=== PATIENT | female | born 1940 | race Caucasian/White ===

== ENCOUNTER 2019-11-27 06:44 | Outpatient (CLI) | payer MEDICARE, OTHER, SELFPAY ==
[2019-11-27 07:51] LABS: Hemoglobin A1C 7.3 % (<5.7)
[2019-11-27 08:03] LABS: Alanine Aminotransferase 12 U/L (4-35); Blood Urea Nitrogen 30 mg/dL (7-17); Calcium 9.2 mg/dL (8.4-10.2); Carbon Dioxide 29 mmol/L (22-30); Chloride 98 mmol/L (98-107); Cholesterol 181 mg/dL (0-200); Estimated Glomerular Filt Rate 48; Glucose 174 mg/dL (65-105); HDL Direct 41 mg/dL; Potassium 4.2 mmol/L (3.4-5.0); Sodium 140 mmol/L (137-145); Triglycerides 191 mg/dL (<150)
[2019-11-27 08:13] LABS: LDL Cholesterol Direct 122 mg/dL
== END 2019-11-27 06:45 | disposition home or self-care (01) ==
PROVIDERS: PCP Family Medicine; Visit Provider Family Medicine
DX: E11.42 Type 2 diabetes mellitus with diabetic polyneuropathy (principal)
CPT/HCPCS: 36415; 80048; 80061; 83036; 84460

== ENCOUNTER 2020-04-04 15:39 | Emergency (ER) | payer MEDICARE, OTHER, SELFPAY ==
[2020-04-04] VITALS (7 sets, daily range): BP systolic 122–147; BP diastolic 58–84; PULSE 82–103; RESP 13–22; TEMP 36.9; O2SAT 91–97
--- NOTE | ~2020-04-04 | CT_ITS ---
EXAMINATION: CT lumbar spine skylar butler EXAM DATE: 04/04/2020 17:45 INDICATION: Low back pain after fall. TECHNIQUE: Spiral CT lumbar spine was performed without contrast. Axial, coronal and sagittal images of the lumbar spine were reviewed. The dose-length product (DLP) for this examination was 1491.03 mGy -cm. The exposure was tailored according to patient size (auto mA exposure control), and iterative r econstruction (ASIR) was used as additional dose reduction technique. Correlation is made to MR cisse r spine 10/03/2013. FINDINGS: Sacrum, sacroiliac joints, sacral arcuate lines are intact. There is no evidence of acute lumbar fra cture or spondylolysis. There is no disc space widening or traumatic vertebral body subluxation susp ected. Paraspinal soft tissue is unremarkable. There is a hemangioma in the L2 vertebral body. There is moderate lumbar disc disease, mild to modera te facet arthropathy. Cholelithiasis. Possible right nephrolithiasis. Colonic diverticulosis. Cai c atheter in position. There is moderate to severe bilateral neural foraminal stenosis at L5-S1, moder ate right neural foraminal stenosis at L3-4 and L4-5. Less stenosis at other levels. Moderate to eligio re central canal stenosis L3-4 and L4-5. A detailed level by level evaluation of spondylosis can be added as addendum if requested. IMPRESSION: 1. No acute lumbar findings. 2. Moderate to severe degenerative changes. Reviewed, dictated and finalized at location A.
--- NOTE | ~2020-04-04 | XR_ITS ---
EXAMINATION: XR chest 1V portable EXAM DATE: 04/04/2020 16:53 INDICATION: Fall, right hip pain. TECHNIQUE: Portable AP frontal chest x-ray was obtained. Comparison is made to prior examination from 01/24/2017. FINDINGS: The lungs are clear. There are no pleural effusions. Cardiac silhouette is prominent but magnified on this AP technique. There is no pneumothorax suspected. Moderate-sized midthoracic end plate osteophytes. Other bony degenerative changes. Benign right paratracheal peripheral calcificatio n. IMPRESSION: No acute cardiopulmonary findings. Reviewed, dictated and finalized at location A.
--- NOTE | ~2020-04-04 | XR_ITS ---
EXAMINATION: XR hip RT min 3V w AP pelvis EXAM DATE: 04/04/2020 16:53 INDICATION: Fall, subsequent right hip pain. TECHNIQUE: Right hip frontal, crosstable lateral and 'frog-leg' projections for interpretation. Front al projection pelvis. Comparison is made to prior examination from 01/16/2012. FINDINGS: There is a right hip gamma nail bridging a healed intertrochanteric fracture. The hardware is in expected position and there is no periprosthetic lucency. There is moderate symmetric bilateral hip primary osteoarthritis. There are no acute pelvic or right hip fractures or dislocations identif ied. There is no subcutaneous gas. Bullet-like foreign body. There are arterial calcifications, art eriosclerosis. IMPRESSION: Intact right hip arthroplasty. Reviewed, dictated and finalized at location A.
--- NOTE | 2020-04-04 15:56 | ED.GENADULT ---
HPI - General Adult General Chief complaint: Extremity Injury, Lower Stated complaint: fall, hip pain Source: RN notes reviewed History of Present Illness HPI narrative: Patient presents emergency department from home via EMS for fall. Patient states that she normally walks with a walker house but leaves outside the bathroom and she uses the bathroom. States she was using the restroom and was trying to hold onto the shower when she fell landing on her right hip. She denies striking her head or any other injury states he was unable to get up and has had pain in the right hip since that time patient denies any vision changes numbness or tingling in extremities, chest pain shortness of breath or any other symptoms Related Data Allergies Allergy/AdvReac Type Severity Reaction Status Date / Time Penicillins Allergy Severe Anaphylactic Verified 04/04/20 16:45 Shock Review of Systems Review of Systems: Narrative: Gen.: Denies fevers or chills Eyes: Denies eye pain or visual change ENT: Denies congestion Respiratory: Denies shortness of breath or cough CV: Denies chest pain or palpitations GI: Denies abdominal pain nausea, emesis or diarrhea Musculoskeletal: D see HPI Neuro: Denies numbness, tingling, weakness or focal weakness Skin: Denies rash Except as documented, all other systems reviewed and negative [facility] Past Medical History Medical History (Updated 04/04/20 @ 18:57 by Rai Bingham DO) Diabetes mellitus Hypertension Family History Family History (Updated 06/11/14 @ 15:50 by DOCTOR UNKNOWN) Other Hypertension Social History Social History Smoking status: Former smoker Gender identity (if verbalized by the patient): Female Exam Narrative: Exam Narrative: APPEARANCE: No acute distress, nontoxic, resting in bed EYES: PERRL HEENT: Normocephalic, atraumatic, OMM RESPIRATORY: No respiratory distress Clear to auscultation bilaterally with no rhonchi wheezing or rales. CARDIOVASCULAR: Regular rate and rhythm without murmurs rubs or gallops. ABDOMINAL: Soft, nontender, nondistended, no rebound or guarding MUSCULOSKELETAl:. No clubbing, cyanosis or edema. No tenderness palpation of bilateral upper extremities and left lower extremity. Tender palpation of the right lateral anterior hip, pain with any movement of the hip, no tenderness the right knee or ankle, dorsalis pedis pulse 2+, neurovascular intact NEURO: Awake and alert. Following commands, speech normal, no focal deficits SKIN:: Warm, dry. No rashes lesions or abrasions PSYCHIATRIC: Normal affect/mood, Course Course Emergency Course: Patient states she is feeling better this time. States pain is improved able to move the right leg without pain Patient will get up and ambulate in ED with walker with no pain no assistance feels stable for discharge Discussed with patient results of workup and diagnosis. Discussed need for follow-up with primary care, proper use of medication, and reasons to return to the emergency department. Patient understands and agrees to current treatment plan Vital Signs Vital signs: Vital Signs Temperature 98.4 F 04/04/20 15:55 Pulse Rate 103 H 04/04/20 15:55 Respiratory Rate 18 04/04/20 15:55 Blood Pressure 147/84 H 04/04/20 15:55 Pulse Oximetry 97 04/04/20 15:55 Temperature 98.4 F 04/04/20 15:55 Pulse Rate 84 04/04/20 18:30 Respiratory Rate 14 04/04/20 18:30 Blood Pressure 134/58 L 04/04/20 17:31 Pulse Oximetry 92 04/04/20 18:30 Medical Decision Making Vital Signs Vital Signs: Vital Signs Temperature 98.4 F 04/04/20 15:55 Pulse Rate 103 H 04/04/20 15:55 Respiratory Rate 18 04/04/20 15:55 Blood Pressure 147/84 H 04/04/20 15:55 Pulse Oximetry 97 04/04/20 15:55 Temperature 98.4 F 04/04/20 15:55 Pulse Rate 84 04/04/20 18:30 Respiratory Rate 14 04/04/20 18:30 Blood Pressure 134/58 L 04/04/20
--- NOTE | 2020-04-04 17:10 | PC.NURSE ---
Dr. Bingham aware that pt's pain continues and has worsened, is having horrible muscle spasms. Dr. Bingham at bedside for reevaluation.
[2020-04-04 17:14] LABS: Basophils Absolute Auto 0.1 K/mm3 (0.0-0.1); Basophils Percent Auto 0.4 % (0.2-1.2); Eosinophils Absolute Auto 0.4 K/mm3 (0-0.3); Eosinophils Percent Auto 3.8 % (0-4.4); Hematocrit 40.6 % (37.0-47.0); Hemoglobin 12.5 g/dL (12.0-15.0); Immature Granulocyte Absolute 0.06 K/mm3 (0.00-0.031); Immature Granulocyte Percent A 0.5 % (0-0.5); Lymphocytes Absolute Auto 0.98 K/mm3 (0.9-3.2); Lymphocytes Percent Auto 8.6 % (18.3-44.2); Mean Corpuscular HGB Conc 30.8 g/dl (32-36); Mean Corpuscular Hemoglobin 25.6 pg (26-34); Mean Corpuscular Volume 83.2 fl (80-100); Mean Platelet Volume 10.1 fl (7.4-10.4); Monocytes Absolute Auto 0.6 K/mm3 (0.1-0.6); Monocytes Percent Auto 5.2 % (2.6-8.5); Neutrophils Absolute Auto 9.3 K/mm3 (1.3-6.7); Neutrophils Percent Auto 81.5 % (45.5-73.1); Platelet Count Result 219 k/mm3 (150-375); Red Blood Count 4.88 M/mm3 (4.2-5.4); Red Cell Distribution Width 15.4 % (11.5-14.5); White Blood Count 11.4 K/mm3 (4.5-10.0)
[2020-04-04 17:16] LABS: Add Urine Microscopic? NO; Appearance Urine Clear (Clear); Bilirubin Urine Negative (Negative); Blood Urine Negative (Negative); Color Urine Straw (Yellow); Glucose Urine UA Negative (Negative); Ketones Urine Negative (Negative); Leukocyte Esterase Ur Negative LEU/UL (Negative); Nitrate Urine Negative (Negative); Protein Urine Negative (Negative); Urobilinogen Urine Negative mg/dL (<2.0)
[2020-04-04 17:24] LABS: Partial Thromboplastin Time 25.7 SECONDS (22.3-36.8); Prothrombin Time 12.8 Seconds (11.1-14.7)
[2020-04-04 17:25] LABS: Blood Urea Nitrogen 25 mg/dL (7-17); Calcium 9.2 mg/dL (8.4-10.2); Carbon Dioxide 30 mmol/L (22-30); Chloride 99 mmol/L (98-107); Estimated CRCL calculation 47 ml/min; Estimated Glomerular Filt Rate 54; Glucose 105 mg/dL (65-105); Potassium 3.9 mmol/L (3.4-5.0); Sodium 138 mmol/L (137-145)
--- NOTE | 2020-04-04 18:50 | PC.NURSE ---
Walker brought to patient's bedside. Pt able to get out of bed easily, ambulates without difficulty with walker and two assist. Assisted back to bed. Cai dc'd catheter intact. Dr. Bingham made aware.
== END 2020-04-04 19:27 | disposition home or self-care (01) ==
PROVIDERS: Emergency Provider Emergency Medicine; PCP Family Medicine
DX: S70.01XA Contusion of right hip, initial encounter (principal); E11.9 Type 2 diabetes mellitus without complications; I10 Essential (primary) hypertension; Z96.641 Presence of right artificial hip joint; M47.816 Spondylosis without myelopathy or radiculopathy, lumbar region; W18.39XA Other fall on same level, initial encounter
CPT/HCPCS: 36415; 51702; 71045; 72131; 73502; 80048; 81003; 85025; 85610; 85730; 86850; 86900; 86901; 96365; 99284; J0131

== ENCOUNTER 2020-07-19 06:47 | Outpatient (CLI) | payer MEDICARE, OTHER, SELFPAY ==
[2020-07-19 07:40] LABS: Alanine Aminotransferase 13 U/L (4-35); Triglycerides 133 mg/dL (<150)
[2020-07-19 07:51] LABS: LDL Cholesterol Direct 129 mg/dL
[2020-07-19 08:11] LABS: Creatinine Urine 107.4 mg/dL
[2020-07-19 08:15] LABS: MALB Creatinine Ratio 14.9 mg/g (0-30)
== END 2020-07-19 06:48 | disposition home or self-care (01) ==
PROVIDERS: PCP Family Medicine; Visit Provider Family Medicine
DX: E11.42 Type 2 diabetes mellitus with diabetic polyneuropathy (principal); E78.1 Pure hyperglyceridemia
CPT/HCPCS: 36415; 82043; 83036; 83721; 84460; 84478

== ENCOUNTER 2021-06-29 10:57 | Outpatient (CLI) | payer MEDICARE, OTHER, SELFPAY ==
--- NOTE | ~2021-06-29 | CT_ITS ---
EXAMINATION: CT lumbar spine wo con EXAM DATE: 06/29/2021 11:17 INDICATION: Spinal stenosis of lumbar region. TECHNIQUE: Spiral CT of the lumbar spine was performed without contrast. Axial, coronal and sagittal images lumbar spine were reviewed. The dose-length product (DLP) for this examination was 950.37 mG y-cm. The exposure was tailored according to patient size (auto mA exposure control), and iterative reconstruction (ASIR) was used as additional dose reduction technique. Comparison is made to prior e xamination from 04/04/2020. FINDINGS: Vacuum disc phenomenon at the discs between L2 and S1 along with moderate disc disease at t hese levels. There are no acute fractures identified. No spondylolysis. The vertebral bodies are alig koko in the AP dimension. Large hemangioma within the L2 vertebral body. Small to moderate-sized endpl ate osteophytes and Schmorl's nodes. Moderate sigmoid diverticulosis. Moderate aortoiliac arterial sc lerosis. Imaged portion of sacrum unremarkable. Level by level evaluation: T12-L1: There is a mild diffuse disc bulge. Facet arthropathy: None. Neural foraminal stenosis: No stenosis. Central canal stenosis: No stenosis. L1-L2: There is a mild diffuse disc bulge. Facet arthropathy: Mild. Neural foraminal stenosis: No stenosis. Central canal stenosis: Mild. L2-L3: There is a mild to moderate diffuse disc bulge. Facet arthropathy: Mild. Neural foraminal stenosis: Mild bilateral. Central canal stenosis: Mild to moderate. L3-L4: There is a moderate diffuse disc bulge. Facet arthropathy: Moderate. Neural foraminal stenosis: Moderate right, mild left. Central canal stenosis: Moderate. L4-L5: There is a moderate to large diffuse disc bulge. Facet arthropathy: Moderate. Neural foraminal stenosis: Moderate right, mild left. Central canal stenosis: Moderate to severe. L5-S1: There is a moderate diffuse disc bulge. Facet arthropathy: Moderate. Neural foraminal stenosis: Moderate to severe left, moderate right. Central canal stenosis: Mild to moderate. IMPRESSION: Moderate to severe lumbar spondylosis as detailed above. Reviewed, dictated and finalized at location B.
== END 2021-06-29 10:58 | disposition home or self-care (01) ==
LOC: ANHIMG 11:01
PROVIDERS: PCP Family Medicine; Visit Provider Family Medicine
DX: M47.817 Spondylosis without myelopathy or radiculopathy, lumbosacral region (principal); M48.07 Spinal stenosis, lumbosacral region
CPT/HCPCS: 72131

== ENCOUNTER 2023-12-24 07:10 | Outpatient (CLI) | payer MEDICARE, OTHER, SELFPAY ==
--- NOTE | ~2023-12-24 | XR_ITS ---
Clinical Indication: Pneumonia PA and lateral views of the chest: Comparison: 04/04/2020 Findings: The lungs are clear, without evidence of focal consolidation or pleural effusion. Cardiome diastinal silhouette is within normal limits. Bones and soft tissues are unremarkable. Impression: Normal chest. Reviewed, dictated and finalized at [facility]. L BUSINESS DIRECTOR Impression: Normal chest.
== END 2023-12-24 07:11 | disposition home or self-care (01) ==
PROVIDERS: PCP Family Medicine; Visit Provider Family Medicine
DX: J18.9 Pneumonia, unspecified organism (principal)
CPT/HCPCS: 71046

== ENCOUNTER 2024-05-26 06:55 | Outpatient (CLI) | payer MEDICARE, OTHER, SELFPAY ==
[2024-05-26 07:42] LABS: Alanine Aminotransferase 11 U/L (6-35); Albumin Level 4.3 g/dL (3.5-5.1); Alkaline Phosphatase 61 U/L (38-126); Anion Gap 10 mmol/L (4-12); Aspartate Amino Transferase 18 U/L (14-36); Bilirubin,Total 0.7 mg/dL (0.2-1.3); Blood Urea Nitrogen 41 mg/dL (7-17); Carbon Dioxide 32 mmol/L (22-30); Chloride 98 mmol/L (98-107); Cholesterol 178 mg/dL (0-200); Estimated Glomerular Filt Rate 39; Glucose 178 mg/dL (65-110); HDL Direct 35 mg/dL; Potassium 4.4 mmol/L (3.4-5.0); Sodium 140 mmol/L (137-145); Triglycerides 257 mg/dL (<150)
[2024-05-26 07:52] LABS: LDL Cholesterol Direct 91 mg/dL
[2024-05-26 08:13] LABS: Hemoglobin A1C 8.9 % (<5.7)
[2024-05-26 09:41] LABS: Creatinine Urine 136.1 mg/dL
[2024-05-26 09:44] LABS: MALB Creatinine Ratio 53.2 mg/g (0-30); Microalbumin Urine Random 72.4 mg/L (0-16.7)
== END 2024-05-26 06:56 | disposition home or self-care (01) ==
PROVIDERS: PCP Family Medicine; Visit Provider Nurse Practitioner Family
DX: E11.59 Type 2 diabetes mellitus with other circulatory complications (principal); I15.2 Hypertension secondary to endocrine disorders; E78.5 Hyperlipidemia, unspecified; E11.69 Type 2 diabetes mellitus with other specified complication
CPT/HCPCS: 36415; 80053; 80061; 82043; 83036